=== PATIENT | female | born 1975 | race Caucasian/White ===

== ENCOUNTER 2017-09-29 10:42 | Emergency (ER) | payer OTHER, MEDICAID ==
[~2017-09-29] VITALS: Ht 167.6 cm; Wt 63.0 kg
[~2017-09-29 10:42] MED LIST: CLON-528 PO
[2017-09-29 12:33] LABS: BASOPHILS % (AUTO) 0.1 % (0-1); EOSINOPHILS # (AUTO) 0.1 X10'3 (0-0.9); EOSINOPHILS % (AUTO) 0.8 % (0-6); HEMATOCRIT 40.5 % (35.0-45.0); MEAN CORPUSCULAR HEMOGLOBIN 31.5 PG (27.0-31.0); MEAN CORPUSCULAR HGB CONC 34.7 % (33.0-36.5); MEAN CORPUSCULAR VOLUME 90.8 FL (78-98); MEAN PLATELET VOLUME 7.6 FL (7.4-10.4); MONOCYTES # (AUTO) 0.6 X10'3 (0-0.9); MONOCYTES % (AUTO) 4.6 % (2-12); NEUTROPHILS # (AUTO) 9.2 X10'3 (1.8-7.7); NEUTROPHILS % (AUTO) 77.5 % (42-75); PLATELET COUNT 253 X10'3 (140-440); RED BLOOD COUNT 4.46 X10'6 (4.20-5.60); RED CELL DISTRIBUTION WIDTH 12.5 % (11.5-14.5); WHITE BLOOD COUNT 11.9 X10'3 (4.5-11.0)
[2017-09-29 12:48] LABS: ALANINE AMINOTRANSFERASE 36 U/L (12-78); ALBUMIN 3.9 G/DL (3.4-5.0); ALBUMIN/GLOBULIN RATIO 1.1 (1.1-1.5); ALKALINE PHOSPHATASE 80 IU/L (46-116); ANION GAP 10 (8-16); ASPARTATE AMINO TRANSFERASE 26 U/L (10-37); BILIRUBIN,TOTAL 0.3 MG/DL (0.1-1.0); BLOOD UREA NITROGEN 14 MG/DL (7-18); BUN/CREATININE RATIO 18.7 (6.6-38.0); CALCIUM 9.2 MG/DL (8.5-10.1); CHLORIDE 105 MMOL/L (99-107); CREATININE 0.75 MG/DL (0.40-0.90); GLUCOSE 94 MG/DL (70-104); LIPASE 107 U/L (73-393); POTASSIUM 4.1 MMOL/L (3.5-5.1); SODIUM 139 MMOL/L (135-145); TOTAL CARBON DIOXIDE 24.4 MMOL/L (24-32); TOTAL PROTEIN 7.3 G/DL (6.4-8.2); eGFR 85 ML/MIN
[2017-09-29] MEDS ORDERED: HYDROcodone/acetaminophen 10/325mg tab PO ONE (13:30)
[2017-09-29 13:43] LABS: URINE HCG NEGATIVE (NEG)
[2017-09-29 14:38] VITALS: BP 98/69
== END 2017-09-29 14:19 | disposition home or self-care (01) ==
LOC: ER 10:43
DX: S80.212A Abrasion, left knee, initial encounter (principal); S80.211A Abrasion, right knee, initial encounter; M25.551 Pain in right hip; M54.5 Low back pain; R07.89 Other chest pain; N64.4 Mastodynia; G89.29 Other chronic pain; Z56.0 Unemployment, unspecified; Z79.899 Other long term (current) drug therapy; V89.2XXA Person injured in unspecified motor-vehicle accident, traffic, initial encounter; Y93.89 Activity, other specified; Y92.89 Other specified places as the place of occurrence of the external cause; Y99.8 Other external cause status
CPT/HCPCS: 36415; 70450; 71250; 74176; 80053; 81025; 83690; 85025; 99285

== ENCOUNTER 2018-07-05 12:12 | Emergency (ER) | payer MEDICAID ==
[~2018-07-05] VITALS: Ht 167.6 cm; Wt 68.2 kg
[2018-07-05 13:00] LABS: CLARITY,URINE CLEAR (Clear); COLOR,URINE YELLOW (Yellow); GLUCOSE, URINE NEGATIVE (Neg); KETONES,URINE NEGATIVE (Neg); LEUKOCYTE ESTERASE ,URINE NEGATIVE (Neg); NITRITES, URINE NEGATIVE (Neg); OCCULT BLOOD,URINE NEGATIVE (Neg); PROTEIN,URINE NEGATIVE (Neg); UROBILINOGEN,URINE 0.2 E.U/dL (0.2-1.0)
[2018-07-05 13:10] LABS: UA COLLECTION TYPE CLN CATCH MIDSTREAM
[2018-07-05 13:13] LABS: BASOPHILS # (AUTO) 0.2 X10'3 (0-0.2); BASOPHILS % (AUTO) 1.2 % (0-1); EOSINOPHILS # (AUTO) 0.1 X10'3 (0-0.9); EOSINOPHILS % (AUTO) 1.1 % (0-6); HEMATOCRIT 42.9 % (35.0-45.0); HEMOGLOBIN 14.6 g/dl (12.0-16.0); LYMPHOCYTES # (AUTO) 1.9 X10'3 (1.1-4.8); LYMPHOCYTES % (AUTO) 14.7 % (21-51); MEAN CORPUSCULAR HEMOGLOBIN 31.3 PG (27.0-31.0); MEAN CORPUSCULAR HGB CONC 34.1 g/dL (33.0-36.5); MEAN CORPUSCULAR VOLUME 91.7 FL (78-98); MEAN PLATELET VOLUME 8.2 FL (7.4-10.4); MONOCYTES # (AUTO) 0.5 X10'3 (0-0.9); NEUTROPHILS # (AUTO) 10.1 X10'3 (1.8-7.7); PLATELET COUNT 269 X10'3 (140-440); RED BLOOD COUNT 4.67 X10'6 (4.20-5.60); RED CELL DISTRIBUTION WIDTH 13.4 % (11.5-14.5); WHITE BLOOD COUNT 12.8 X10'3 (4.5-11.0)
[2018-07-05 13:21] LABS: ALANINE AMINOTRANSFERASE 27 U/L (12-78); ALBUMIN 4.3 G/DL (3.4-5.0); ALBUMIN/GLOBULIN RATIO 1.3 (1.1-1.5); ALKALINE PHOSPHATASE 79 IU/L (46-116); ANION GAP 10 (8-16); ASPARTATE AMINO TRANSFERASE 29 U/L (10-37); BILIRUBIN,TOTAL 0.4 MG/DL (0.1-1.0); CALCIUM 9.5 MG/DL (8.5-10.1); CHLORIDE 103 MMOL/L (99-107); GLUCOSE 102 MG/DL (70-104); LIPASE 116 U/L (73-393); SODIUM 140 MMOL/L (135-145); TOTAL CARBON DIOXIDE 27.2 MMOL/L (24-32); TOTAL PROTEIN 7.7 G/DL (6.4-8.2)
[2018-07-05 13:33] LABS: BLOOD UREA NITROGEN 6 MG/DL (7-18); CREATININE 0.86 MG/DL (0.40-0.90); eGFR 72 ML/MIN
[2018-07-05 14:26] VITALS: BP 129/76
== END 2018-07-05 15:12 | disposition home or self-care (01) ==
LOC: ER 12:13
DX: K59.00 Constipation, unspecified (principal); R11.10 Vomiting, unspecified; G89.29 Other chronic pain; F17.200 Nicotine dependence, unspecified, uncomplicated; Z98.890 Other specified postprocedural states; Z56.0 Unemployment, unspecified; Z79.899 Other long term (current) drug therapy
CPT/HCPCS: 36415; 74022; 80053; 81003; 83690; 85025; 85610; 99284

== ENCOUNTER 2019-11-22 11:08 | Emergency (ER) | payer MEDICAID ==
[~2019-11-22] VITALS: Ht 167.6 cm; Wt 63.8 kg
[2019-11-22] MEDS ORDERED: LORazepam 1 MG tablet PO ONE (11:55)
[2019-11-22 11:58] LABS: BASOPHILS # (AUTO) 0.1 X10'3 (0-0.2); BASOPHILS % (AUTO) 0.4 % (0-1); EOSINOPHILS # (AUTO) 0.1 X10'3 (0-0.9); EOSINOPHILS % (AUTO) 0.6 % (0-6); HEMATOCRIT 46.4 % (35.0-45.0); HEMOGLOBIN 15.8 g/dl (12.0-16.0); LYMPHOCYTES # (AUTO) 1.7 X10'3 (1.1-4.8); LYMPHOCYTES % (AUTO) 13.6 % (21-51); MEAN CORPUSCULAR HEMOGLOBIN 32.3 PG (27.0-31.0); MEAN CORPUSCULAR HGB CONC 34.1 g/dL (33.0-36.5); MEAN CORPUSCULAR VOLUME 94.8 FL (78-98); MEAN PLATELET VOLUME 8.1 FL (7.4-10.4); MONOCYTES # (AUTO) 0.7 X10'3 (0-0.9); MONOCYTES % (AUTO) 5.5 % (2-12); NEUTROPHILS # (AUTO) 10.1 X10'3 (1.8-7.7); NEUTROPHILS % (AUTO) 79.9 % (42-75); PLATELET COUNT 299 X10'3 (140-440); RED CELL DISTRIBUTION WIDTH 12.6 % (11.5-14.5); WHITE BLOOD COUNT 12.6 X10'3 (4.5-11.0)
[2019-11-22 12:11] LABS: ALANINE AMINOTRANSFERASE 29 U/L (12-78); ALBUMIN 4.6 G/DL (3.4-5.0); ALBUMIN/GLOBULIN RATIO 1.2 (1.1-1.5); ALKALINE PHOSPHATASE 98 IU/L (46-116); ANION GAP 12 (8-16); ASPARTATE AMINO TRANSFERASE 19 U/L (10-37); BILIRUBIN,TOTAL 0.8 MG/DL (0.1-1.0); BLOOD UREA NITROGEN 13 MG/DL (7-18); BUN/CREATININE RATIO 11.9 (6.6-38.0); CALCIUM 10.1 MG/DL (8.5-10.1); CHLORIDE 99 MMOL/L (99-107); CREATININE 1.09 MG/DL (0.40-0.90); GLUCOSE 112 MG/DL (70-104); POTASSIUM 3.9 MMOL/L (3.5-5.1); SODIUM 134 MMOL/L (135-145); TOTAL CARBON DIOXIDE 22.7 MMOL/L (24-32); TOTAL PROTEIN 8.3 G/DL (6.4-8.2); eGFR 55 ML/MIN
[2019-11-22 12:20] LABS: ETHANOL < 0.010 GM/DL (0.0-0.010)
[2019-11-22 12:30] LABS: URINE HCG NEGATIVE (NEG)
[2019-11-22 12:35] LABS: URINE AMPHETAMINE SCREEN POSITIVE (Neg); URINE BARBITUATE SCREEN NEGATIVE (Neg); URINE BENZODIAZEPINES SCREEN NEGATIVE (Neg); URINE CANNABINOID SCREEN NEGATIVE (Neg); URINE COCAINE SCREEN NEGATIVE (Neg); URINE METHADONE SCREEN NEGATIVE (Neg); URINE OPIATE SCREEN NEGATIVE (Neg); URINE PHENCYCLIDINE SCREEN NEGATIVE (Neg)
[2019-11-22 12:36] LABS: CLARITY,URINE SLIGHTLY CLOUDY (Clear); GLUCOSE, URINE NEGATIVE (Neg); KETONES,URINE 15 mg/dl (Neg); LEUKOCYTE ESTERASE ,URINE NEGATIVE (Neg); NITRITES, URINE NEGATIVE (Neg); OCCULT BLOOD,URINE LARGE (Neg); PROTEIN,URINE NEGATIVE (Neg); UROBILINOGEN,URINE 0.2 E.U/dL (0.2-1.0)
[2019-11-22 12:37] LABS: COLOR,URINE DARK YELLOW (Yellow); UA COLLECTION TYPE CLN CATCH MIDSTREAM
[2019-11-22 12:47] LABS: MUCUS STRANDS FEW /LPF (Neg); SQUAMOUS EPITHELIAL CELL,UR MANY /LPF (FEW); TRANSITIONAL EPI CELLS,URINE FEW /HPF
[2019-11-22 12:48] LABS: BACTERIA,URINE FEW /HPF (Neg); RBC,URINE TNTC /HPF (0-2); WBC,URINE 0-4 /HPF (0-4)
--- NOTE | 2019-11-22 13:03 | NUR ---
Pt escorted from ED15 to OF22 w/ PCT [facility].
--- NOTE | 2019-11-22 13:04 | NUR ---
Faxed meal tray form to dietary.
--- NOTE | 2019-11-22 13:04 | NUR ---
Report from Mai FLETCHER on pt. Assuming pt care while breaking Danielle who will be primary RN. Will give report to Danielle upon her return.
--- NOTE | 2019-11-22 13:18 | NUR ---
Pt mood labile with tearfulness and increased anxiety. 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 She has not been on any psychotropic since 04/2019. Pt affirms current audio and visual hallucinations "that are tormenting me, making me not able to tell what's real and what's not. I think about hurting my family, but I'm not a violent person. It scares me." Pt denies SI @ this time. Addendum: 11/22/19 at 1324 by SADI ec: pt was on klonopin, not Clozaril (antipsychotic of last resort). Discussed med recommendation with WICHO Osei for [facility] who indicated Inverga 30mg PO would be appropriate med for this pt.
--- NOTE | 2019-11-22 13:35 | NUR ---
Nitza Meza [facility], engaged with pt. currently.
[2019-11-22] MEDS ORDERED: OLANZapine 5mg rapidly disint. tablet PO ONE (13:45)
[2019-11-22] MEDS ORDERED: LORazepam 1 MG tablet PO PRN (13:45)
--- NOTE | 2019-11-22 16:10 | NUR ---
Patient sleeping, no distress observed. Continue to monitor.
[2019-11-22 17:33] VITALS: BP 107/70
[2019-11-22] MEDS ORDERED: OLANZapine 5mg rapidly disint. tablet PO SCH (21:00)
--- NOTE | 2019-11-22 21:47 | NUR ---
Pt woke up requested Ativan and Zyprexa. Zyprexa given no order for Ativan. Pt satisfied. Pt conversation somewhat disorganized and tangential. 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 Encouraged pt to talk to [facility] in am about possible programs that might help her. Pt calm and cooperative sleeping at this time.
--- NOTE | 2019-11-23 00:22 | NUR ---
pt resting in bed. respiratory rate of 15. no s/s of distress or pain. will continue to monitor.
--- NOTE | 2019-11-23 03:03 | NUR ---
Packet faxed to [facility].
--- NOTE | 2019-11-23 05:15 | NUR ---
Pt sleeping resp even and unlabored.
--- NOTE | 2019-11-23 07:00 | NUR ---
pt is sleeping
--- NOTE | 2019-11-23 08:00 | NUR ---
pt is sleeping
--- NOTE | 2019-11-23 09:03 | NUR ---
pt is sleeping
--- NOTE | 2019-11-23 10:00 | NUR ---
pt is sleeping
--- NOTE | 2019-11-23 11:00 | NUR ---
pt is speaking with [facility]
== END 2019-11-23 13:04 | disposition home or self-care (01) ==
LOC: ER 11:09
DX: R45.851 Suicidal ideations (principal); R45.850 Homicidal ideations; G89.29 Other chronic pain; F31.9 Bipolar disorder, unspecified; F20.9 Schizophrenia, unspecified; F41.9 Anxiety disorder, unspecified; Z98.890 Other specified postprocedural states; Z56.0 Unemployment, unspecified; Z79.899 Other long term (current) drug therapy
CPT/HCPCS: 36415; 80053; 80305; 80320; 81001; 81025; 84443; 85025; 99285

== ENCOUNTER 2021-10-14 23:02 | Emergency (ER) | payer MEDICAID ==
[~2021-10-14] VITALS: Ht 167.6 cm; Wt 59.1 kg
[2021-10-14 23:09] VITALS: BP 123/75
[2021-10-15] MEDS ORDERED: DOXYCYCLINE 100MG CAPSULE PO STA (00:50)
[2021-10-15] MEDS ORDERED: naproxen 500mg tablet PO ONE (00:55)
--- NOTE | 2021-10-15 00:59 | NUR ---
po med given
--- NOTE | 2021-10-15 01:07 | NUR ---
wound irr with 150ml nacl
--- NOTE | 2021-10-15 01:21 | NUR ---
dressing applied to lac repair. pt education given on dressing change. pt understood with return demo
[2021-10-15] MEDS ORDERED: DOXY-11 PO (01:24)
== END 2021-10-15 01:27 | disposition home or self-care (01) ==
LOC: ER 23:03
DX: S81.012A Laceration without foreign body, left knee, initial encounter (principal); G89.29 Other chronic pain; M54.50 Low back pain, unspecified; F31.9 Bipolar disorder, unspecified; Z56.0 Unemployment, unspecified; W45.8XXA Other foreign body or object entering through skin, initial encounter; Y93.89 Activity, other specified; Y92.89 Other specified places as the place of occurrence of the external cause; Y99.8 Other external cause status
CPT/HCPCS: 12002; 99283; A6222; A6449

== ENCOUNTER 2022-01-18 12:39 | Emergency (ER) | payer MEDICAID | END 2022-01-18 14:39 | disposition left against medical advice (07) | LOC: ER 12:39 | DX: F29 Unspecified psychosis not due to a substance or known physiological condition (principal); Z53.21 Procedure and treatment not carried out due to patient leaving prior to being seen by health care provider ==